=== PATIENT | female | born 1975 | race Caucasian/White ===

== ENCOUNTER 2024-08-21 13:45 | Outpatient (RCR) | payer BC, SELFPAY ==
--- NOTE | 2024-07-12 15:03 | PT.OPEX ---
PT [place] Outpatient Eval PT [facility] Outpatient Eval Start: 07/12/24 13:25 Freq: Status: Active Protocol: Document 07/12/24 13:25 MRS (Rec: 07/12/24 15:00 MRS No Response) E-signed By Mayra Salcedo DPT Physical Therapy Outpatient Evaluation Insurance Information Recert Due Date 10/11/24 Insurance Name Medicaid,Blue Cross/[employer] Medical Diagnosis M17.12 unilateral primary osteoarthritis, left knee M17.11 unilateral primary osteoarthritis, right knee B knee patellofemoral arthritis Treating Diagnosis M25.561 Pain in Knee Right M25.561 Pain in Knee Left R53.1 Weakness Imaging Report Information XR= bone on bon arthritis with spurring and lateral transition with lateral tilt Referring MD Jax Graf MD Subjective Preferred Name Ngoc Subjective Initial subjective: Ngoc has been having knee pain for over 5 years. She has arthritis in bilateral hips and knees. She has history of kneecap dislocations; left kneecap would dislocate more than right. LATRICE: multiple patella dislocations over the years starting in middle school. Ngoc has had knee injections and has had fluid removed from knee over 20 years ago. Aggravating factors: stairs particularly going up, kneeling, bending, squatting. Alleviating factors: rest; stretching and rubbing PMH: none Work status: sheriff's officer as a para; active job Pt goals: Improve range of motion and stability as well as strength. Medbridge access code: [email or web address] Pain Comments currently 2/10; at worst 7-8/ 10 Date of Last Physician Visit 05/15/24 Current Work Status Title Curator Precautions Treatment Precautions/Contraindications Pt to have L DANISHA in September 2024; history of patella dislocations Therapy Limitations/Systems Review Not Limited Objective Range of Motion LE AROM (R/L):? -Knee Flx:?134/130 degrees -Knee Ext:?-1/3 degrees (pain) Strength LE Strength (R/L):? -Knee Ext: R: 4+/5, L: 4/5? -Knee Flex: R: 5/5, L: 4+/5? -Hip Abd: R: 3+/5, L: 3/5? -Hip Add: R: 5/5, L: 5/5? -Hip Ext: R: 3-/5, L: 3-/5? -Hip Flx: R: 5/5, L: 4+/5? Ankle Strength (R/L):? -DF: R: 5/5, L: 5/5? -PF (uni heel raise): R: 10+ reps, L: 10+ reps? -Inv: R: 5/5, L: 5/5? -Sara: R: 5/5, L: 5/5? Posture lateral tracking and positioned bilateral patella L >R; left knee flexion in standing Other/Pertinent Objective Silver's test= positive for ITB tightness LE AROM (R/L):? -Knee Flx:?134/130 degrees -Knee Ext:?-1/3 degrees (pain) LE Strength (R/L):? -Knee Ext: R: 4+/5, L: 4/5? -Knee Flex: R: 5/5, L: 4+/5? -Hip Abd: R: 3+/5, L: 3/5? -Hip Add: R: 5, L: 5/5? -Hip Ext: R: 3-/5, L: 3-/5? -Hip Flx: R: 5/5, L: 4+/5? Functional Test Performed & Score LEFS= 15/80 Assessment Assessment/Impression Pt presents with signs and symptoms consistent with bilateral knee arthritis and pain. Contributing factors include, but are not limited to; bilateral hip and knee weakness, impaired biomechanics of bilateral knee , impaired range of motion and flexibility as well as pain. Pt would benefit from skilled PT interventions to facilitate return to PLOF and increase strength and range of motion prior to hip surgeries this summer.?Patient appears motivated to participate in PT . Educated patient on proper form and muscle activation throughout session in order to optimize muscle function and proper body mechanics.? Primary Functional Limitations pain, impaired strength and range of motion limiting functional mobility. Plan of Care Rehabilitation Potential Good Physical Therapy Goals STG's to be met in 2-4 weeks: 1.) Pt will report a decrease in pain to 6/10 at worst or less. 2.) Pt will increase bilateral glute max and med strength to 3+/5 or greater bilaterally. 3.) Pt will be independent and compliant with HEP. LTG's to be met in 6-8 weeks: 1.) Pt will demonstrate full and pain free knee ROM? 2.) Pt will demonstrate 5/5 strength MMT in glut max & glut med to improve dynamic control with SLS activities and gait.? Coordination/Communication With Referral Source Treatment Plan/Direct Interventions Gait Training,Manual Therapy, Neuromuscular Re-ed, Therapeutic Activities, Therapeutic Exercises Frequency/Duration 1-2x/week for 6-8 weeks Patient Will Be Discharged From Therapy Completion of LTG(s),Skills Plateau,Independent w/HEP, Independently Progressing Evaluation Billing Untimed Code Treatment Minutes 30 PT Eval No Charge No Complexity Low Certification Information Initial Certification Date 07/12/24 Ending Certification Date 10/11/24 Provider Signature Required Communication Only-No Signature Required
== END 2024-12-19 23:59 | disposition home or self-care (01) ==
PROVIDERS: PCP Internal Medicine; Visit Provider Orthopaedic Surgery
DX: Z47.1 Aftercare following joint replacement surgery (principal); M17.0 Bilateral primary osteoarthritis of knee; Z96.642 Presence of left artificial hip joint; Z51.89 Encounter for other specified aftercare
CPT/HCPCS: 97110; 97161; 97530

== ENCOUNTER 2024-09-19 06:08 | Day surgery (SDC) | payer MEDICAID, SELFPAY ==
[2024-09-19] VITALS (23 sets, daily range): BP systolic 80–109; BP diastolic 41–80; PULSE 52–79; RESP 14–16; TEMP 36.2–36.7; O2SAT 96–100; BMI 30.1
[2024-09-19] MEDS: LACTATED RINGERS 1000 ML 1,000 ML 100 ML IV ×3 (06:15→10:47)
[2024-09-19] MEDS: ACETAMINOPHEN 500 MG TABLET 1000 MG PO ×2 (06:20→13:30)
[2024-09-19] MEDS: OXYCODONE (CR) 10 MG TAB.ER.12H PO (06:20)
[2024-09-19] MEDS: CELECOXIB 200 MG CAPSULE PO (06:20)
[2024-09-19] MEDS: SODIUM CHLORIDE 0.9 % (FLUSH) 10 ML SYRINGE IVF (06:32)
[2024-09-19] MEDS: MIDAZOLAM HCL 1 MG/ML inj IVP (07:20)
[2024-09-19] MEDS: fentaNYL 100 MCG/2 ML inj IVP (07:20)
--- NOTE | 2024-09-19 07:24 | CRLHL7_ITS ---
For Patients: As a result of the Cures Act, medical imaging exams and procedure reports are released immediately into your electronic medical record. You may view this report before your referring provider. If you have questions, please contact your health care provider. Indication: Hip replacement surgery Technique: AP hip fluoroscopic images. Fluoroscopy time 70.2 seconds. Findings/Impression: Hardware from a left total hip arthroplasty is in satisfactory position. Dictated by Nahum Coleman MD @ 09/19/2024 12:18:20 PM (Electronically Signed)
--- NOTE | 2024-09-19 07:31 | SUR.PREOP ---
TIME?OUT:?56 PT/too de santiago RN/derek honeycutt MDA?VERIFICATION?OF?SURGICAL?SITE,?PROCEDURE,?AND?CONSENT OBTAINED?PRIOR?TO?INVASIVE?PROCEDURE.
--- NOTE | 2024-09-19 07:44 | P.NB_ITS ---
Nerve Block Nerve Block Time Seen by Provider: 07:23 Date Seen: 09/19/24 Type of block requested by surgeon for post-operative analgesia: RAFAEL/LFCN Side: left Time out performed: Yes Verification of patient name: Yes Verification of date of : Yes Site marking: site marked Name of person performing procedure: Hakeem Continuous monitoring Was continuous monitoring of O2 sat, B/P, histology teacher, recorded every 15 minutes?: Yes Procedure Checklist: sterile prep, needles and gloves Ultrasound guided. Images saved: Yes Medications given in 5ml increments after negative aspiration: Ropivicaine %: 0.5 mL: 30 Needle gauge: 20 Precedex (mcg): 25 Patient tolerated procedure well: Yes Additional comments: Needle noted below psoas tendon needle noted adjacent to LFCN Block Charges Block Charge (with Pro Fee): Other Periph Nerve Block Use of Ultrasound Machine for Block: Yes- US Guidance/pain block
[2024-09-19] MEDS: CEFAZOLIN 1 GM inj IVP (07:45)
--- NOTE | 2024-09-19 07:45 | P.ANES_ITS ---
Anesthesia Charges Start Date/Time Anesthesia Start Date: 09/19/24 Anesthesia Start Time: 07:35 Stop Date/Time Anesthesia Stop Date: 09/19/24 Anesthesia Stop Time: 10:05 Coding CPT Codes CPT Codes: ANESTH HIP ARTHROPLASTY - 71053 ([id number]) P2 - PATIENT W/MILD SYST DISEASE, QK - LOCOMOTIVE FIRER/FIREMAN 2-4 CNCRNT ANES PROC, QX - VERIFICATION SPECIALIST SVC W/ MD MED DIRECTION
--- NOTE | 2024-09-19 07:45 | W.ANESCHARGE ---
Anesthesia Charges Start Date/Time Anesthesia Start Date: 09/19/24 Anesthesia Start Time: 07:35 Stop Date/Time Anesthesia Stop Date: 09/19/24 Anesthesia Stop Time: 10:05 Coding CPT Codes CPT Codes: ANESTH HIP ARTHROPLASTY - 74413 ([id number]) P2 - PATIENT W/MILD SYST DISEASE, QK - SLIP COVER ESTIMATOR 2-4 CNCRNT ANES PROC, QX - OUTDOOR RECREATION SPECIALIST SVC W/ MD MED DIRECTION
[2024-09-19] MEDS: TRANEXAMIC ACID 100 MG/ML INJ 1000 MG IV (07:50)
--- NOTE | 2024-09-19 09:28 | CRLHL7_ITS ---
For Patients: As a result of the Cures Act, medical imaging exams and procedure reports are released immediately into your electronic medical record. You may view this report before your referring provider. If you have questions, please contact your health care provider. Indication: Postop left hip Technique: AP hip centered pelvis and lateral view left hip Findings/Impression: Hardware from a left total hip arthroplasty is in satisfactory position. Bone alignment is normal. No sign of acute fracture. Postop changes are within normal limits. Dictated by Nahum Coleman MD @ 09/19/2024 12:02:33 PM (Electronically Signed)
--- NOTE | 2024-09-19 09:40 | PM.ORPRC ---
Procedure Note Date of procedure: 09/19/24 Procedure: PREOPERATIVE DIAGNOSIS: Left hip osteoarthritis, bilateral knee osteoarthritis POSTOPERATIVE DIAGNOSIS: Left hip osteoarthritis, bilateral knee osteoarthritis NAME OF OPERATION: Left total hip arthroplasty, bilateral knee steroid injection SURGEON: Jax Graf MD WASTEWATER PROJECT ENGINEER: Melissa Osuna PA-C, GORDO Jimenez IMPLANTS: 1. [employer] Ogema # 52 sector ingrowth cup 2. 36 x 52 +4 neutral polyethylene 3. Actis # 6 standard collared ingrowth stem 4. 36 + 5 ceramic femoral head ANESTHESIA: Spinal ESTIMATED BLOOD LOSS: 500 cc COMPLICATIONS: None SPECIMENS: None DRAINS: None PREOPERATIVE ANTIBIOTICS: Ancef 2 grams INDICATIONS: The patient is a 49-year-old with a longstanding history of severe, unrelenting left hip pain secondary to end-stage left hip osteoarthritis. Despite appropriate nonoperative management, including activity modification, use of an assist device, anti-inflammatories, [id number] pain medication, physical therapy and injections, they continue to have pain and disability. Operative intervention was offered. The risks, benefits and expected outcomes were discussed in detail. These included but were not limited to: Infection, bleeding, injury to blood vessel or nerve, venous thromboembolism. All questions were answered to their satisfaction. Use of an assistant professor of sociology was necessary throughout the case for patient positioning and safety, soft tissue retraction and closure. PROCEDURE: The patient was placed supine on the [place] table. General anesthesia was administered. The assistant professor of sociology made sure the patient was properly positioned. The left hip was prepped and draped in the usual sterile fashion. The image intensifier was brought in for a perfect AP pelvis and a perfect double tear drop AP view of each hip which were used for intraoperative templating with our fluoroscopic guide. An oblique incision was made 3 cm distal and 3 cm lateral to the anterior superior iliac spine. The assistant professor of sociology retracted the soft tissues to protect them. Subcutaneous dissection was taken with electrocautery to the superficial fascia. The fascia was divided in line with the incision. Blunt dissection was carried medially to the tensor fascia beata and sartorius interval. Deep dissection was carried with electrocautery. The circumflex vessels were cauterized and divided. The capsule was exposed and then divided in a T-fashion, tagged with #1 FiberWire sutures. Retractors were placed in the joint, held by the assistant professor of sociology. The corkscrew was placed in the femoral head. The neck cut was made in the subcapital region. We made a second neck cut more distal. The napkin ring of bone was removed. The femoral head was removed intact. Acetabular retractors were placed, held by the assistant professor of sociology. The labrum was sharply debrided. The capsule was released. Osteophyte over the anterior and posterior aspect of the cup was resected with the osteotome and pituitary rongeur. The 43 mm reamer was used to the true medial wall. We then enlarged in 2 mm increments using the image intensifier for our reamer placement. We impacted the cup which had excellent purchase. We placed the polyethylene. Attention was then turned to the proximal femur. The limb was placed in 140 degrees of external rotation, maximum extension and adduction. A significant amount of time was spent releasing the capsule to allow us to deliver the femur into the wound and complete the femoral side safely. Retractors were held by the assistant professor of sociology throughout the femoral preparation. The wire bound box machine helper and canal finder were used. Broaches were used to a stable size. The calcar reamer was used. Trial components were placed. The hip was reduced and was found to be stable with appropriate soft tissue tension. Length and offset had been nicely restored using the image intensifier and our fluoroscopic guide. Trial components were removed. The stem was impacted. We placed the femoral head. Again, the hip was reduced and was found to be stable with appropriate soft tissue tension. Length and offset had been nicely restored. The assistant professor of sociology did a three minute dilute Betadine solution soak. The assistant professor of sociology irrigated the wound with 3 liters of normal saline via pulse lavage. The assistant professor of sociology repaired the anterior capsule with a #1 Vicryl and our previously placed Ethibond sutures. The assistant professor of sociology closed the fascia over the tensor fascia beata with a #1 PDO Stratafix, subcutaneous tissues with 2-0 Vicryl, skin with a running 3-0 Stratafix and glue. A dry dressing was applied by the assistant professor of sociology. Sponge and needle counts were correct x 2. Both knees were sterilely prepped. Through a superomedial approach each knee was injected with 4 mL 0.25% Marcaine without epinephrine, 40 mg Depo-Medrol. The patient tolerated the procedure well; there were no apparent complications. They were awakened and extubated in the operating room, sent to the Post-Anesthesia Care Unit in satisfactory condition. PLAN: 1. The patient will be mobilized with physical therapy, weight-bearing as tolerates 2. Xarelto x 5 days then aspirin x 30 days will be used for DVT prophylaxis 3. The patient will be discharged once medically appropriate
[2024-09-19] MEDS: methylPREDNISolone acetate 40 MG/ML VIAL INTRA-ARTI (09:44)
[2024-09-19] MEDS: methylPREDNISolone acetate 80 MG/ML INJ 40 MG INTRA-ARTI (09:44)
[2024-09-19] MEDS: BUPIVACAINE 0.25% 30 ML INJECTION (09:44)
--- NOTE | 2024-09-19 10:07 | P.ANES_ITS ---
Anesthesia Charges Start Date/Time Anesthesia Start Date: 09/19/24 Anesthesia Start Time: 07:35 Stop Date/Time Anesthesia Stop Date: 09/19/24 Anesthesia Stop Time: 10:05 Coding CPT Codes CPT Codes: ANESTH HIP ARTHROPLASTY - 28251 ([id number]) P2 - PATIENT W/MILD SYST DISEASE, QK - TRADE MARK EXAMINER 2-4 CNCRNT ANES PROC, QX - LIGHT ARMORED RECONNAISSANCE OFFICER SVC W/ MD MED DIRECTION
--- NOTE | 2024-09-19 10:07 | W.ANESCHARGE ---
Anesthesia Charges Start Date/Time Anesthesia Start Date: 09/19/24 Anesthesia Start Time: 07:35 Stop Date/Time Anesthesia Stop Date: 09/19/24 Anesthesia Stop Time: 10:05 Coding CPT Codes CPT Codes: ANESTH HIP ARTHROPLASTY - 27519 ([id number]) P2 - PATIENT W/MILD SYST DISEASE, QK - GAUGE MAKER APPRENTICE 2-4 CNCRNT ANES PROC, QX - RELAY OPERATOR SVC W/ MD MED DIRECTION
[2024-09-19] MEDS: ePHEDrine sulfate 5 MG/ML inj IVP ×2 (10:14→10:26)
[2024-09-19] MEDS: OXYCODONE 5 MG TABLET PO (11:45)
--- NOTE | 2024-09-19 13:34 | SUR.PHASEII ---
1315: Patient ambulatory to restroom with walker and stand by assist of 2 with gait belt. Patient voided. REturned to room to recliner. Tylenol administered-see MAR. Patient eating crackers and tolerated water.
--- NOTE | 2024-09-19 14:28 | SUR.PHASEII ---
1400: Patient tolerated OT. Patient experiencing numbness and tingling bilateral feet and ankles. PT to be delayed until 1420. Dr. Palacio notified of patient's symptoms. No new orders.
--- NOTE | 2024-09-19 14:30 | SUR.PHASEII ---
1430: PT in room with patient.
== END 2024-09-19 15:33 | disposition home or self-care (01) ==
LOC: OR 06:09
PROVIDERS: PCP Family Medicine; Visit Provider Orthopaedic Surgery
PROC: (CPT 27130; principal; 2024-09-19 07:45)
PROC: (CPT 27130; 2024-09-19 07:45)
DX: M16.12 Unilateral primary osteoarthritis, left hip (principal); M17.0 Bilateral primary osteoarthritis of knee; G89.18 Other acute postprocedural pain; K21.9 Gastro-esophageal reflux disease without esophagitis; F32.9 Major depressive disorder, single episode, unspecified; F41.9 Anxiety disorder, unspecified; Z98.84 Bariatric surgery status
CPT/HCPCS: 27130; 20610; 01214; 36415; 64450; 73501; 76000; 76942; 86850; 86900; 86901; 97110; 97116; 97162; 97165; 97530; A9270; C1776; J0665; J0690; J1010; J1100; J2250; J2405; J2704; J2795; J3010; J7120

== ENCOUNTER 2025-01-22 16:31 | Outpatient (CLI) | payer BC, SELFPAY | END 2025-01-22 16:32 | disposition home or self-care (01) | PROVIDERS: PCP Family Medicine; Visit Provider Family Medicine | DX: R42 Dizziness and giddiness (principal); R55 Syncope and collapse | CPT/HCPCS: 80053; 84443 ==